=== PATIENT | male | born 1980 | race American Indian/Alaskan Native ===

== ENCOUNTER 2019-09-16 21:09 | Emergency (ER) | payer SELFPAY ==
[2019-09-16 21:17] VITALS: BP 125/83
--- NOTE | 2019-09-16 22:08 | Emergency Department Report ---
ED ENT HPI - General Chief complaint: Dental/Oral Stated complaint: ABSCESS IN MOUTH Source: patient Mode of arrival: Ambulatory Limitations: No Limitations - History of Present Illness Initial comments: 39-year-old -[place] male comes in with no acute distress for an abscess in his mouth x3 days. Patient states he has been taken Tylenol only which does not help for his pain. Patient denies having a dentist. Patient denies any fever chills no nausea no vomiting or trauma to the mouth. MD complaint: tooth pain Onset/Timin -: days(s) Location: tooth # (18) Severity scale (0 -10): 10 Quality: stabbing, aching, sharp Consistency: constant Improves with: none Worsens with: eating Associated Symptoms: gum swelling, toothache. denies: fever, cough, pain with swallowing, sore throat, tinnitus, hearing loss, discharge from ear, rhinorrhea - Related Data Previous Rx's Medication Instructions Recorded Last Taken Type Clindamycin [Clindamycin CAP] 300 mg PO Q8H #30 cap 09/16/19 Unknown Rx ED Dental HPI - General Chief complaint: Dental/Oral Stated complaint: ABSCESS IN MOUTH Source: patient Mode of arrival: Ambulatory Limitations: No Limitations - Related Data Previous Rx's Medication Instructions Recorded Last Taken Type Clindamycin [Clindamycin CAP] 300 mg PO Q8H #30 cap 09/16/19 Unknown Rx ED Review of Systems ROS: Stated complaint: ABSCESS IN MOUTH Other details as noted in HPI Comment: All other systems reviewed and negative ED Past Medical Hx - Past Medical History Previous Medical History?: No - Surgical History Past Surgical History?: No - Social History Smoking Status: Never Smoker Substance Use Type: None - Medications Home Medications: Home Medications Medication Instructions Recorded Confirmed Last Taken Type Clindamycin [Clindamycin CAP] 300 mg PO Q8H #30 cap 09/16/19 Unknown Rx ED Physical Exam - General Limitations: No Limitations General appearance: alert, in no apparent distress - Head Head exam: Present: atraumatic, normocephalic - Eye Eye exam: Present: normal appearance - ENT ENT exam: Present: mucous membranes moist - Expanded ENT Exam Expanded Teeth exam: Present: dental tenderness # (18), gingival enlargement - Neck Neck exam: Present: normal inspection, full ROM - Neurological Exam Neurological exam: Present: alert, oriented X3, normal gait - Psychiatric Psychiatric exam: Present: normal affect, normal mood - Skin Skin exam: Present: warm, dry, intact, normal color. Absent: rash ED Course Vital Signs 09/16/19 21:15 Temperature 99.0 F Pulse Rate 93 H Respiratory 18 Rate Blood Pressure 125/83 O2 Sat by Pulse 95 Oximetry ED Medical Decision Making - Medical Decision Making 39-year-old -[place] male comes in with no acute distress for an abscess in his mouth x3 days. Patient states he has been taken Tylenol only which does not help for his pain. Patient denies having a dentist. Patient denies any fever chills no nausea no vomiting or trauma to the mouth. Patient will be placed on clindamycin he can take [id number] ibuprofen or Aleve for pain management. Critical care attestation.: If time is entered above; I have spent that time in minutes in the direct care of this critically ill patient, excluding procedure time. ED Disposition Clinical Impression: Dental abscess Disposition: DC-01 TO HOME OR SELFCARE Is pt being admited?: No Does the pt Need Aspirin: No Condition: Stable Instructions: Dental Abscess (ED) Additional Instructions: Complete antibiotics as prescribed. You can take [id number] ibuprofen or Aleve for pain management. Is imperative that you follow-up with a dentist as that tooth needs to be surgically removed as you can continue to have infections. Prescriptions: Clindamycin [Clindamycin CAP] 300 mg PO Q8H #30 cap Referrals: [facility] [Outside] - 3-5 Days [facility] [Outside] - 3-5 Days Forms: Work/School Release Form(ED)
== END 2019-09-16 22:38 | disposition home or self-care (01) ==
LOC: ED 21:09
DX: K04.7 Periapical abscess without sinus (principal); Z79.899 Other long term (current) drug therapy
CPT/HCPCS: 99282